=== PATIENT | male | born 1985 | race Caucasian/White ===

== ENCOUNTER 2024-02-24 08:38 | Inpatient (IN) | payer MEDICARE, MEDICAID ==
[~2024-02-24] VITALS: Ht 180.3 cm; Wt 72.2 kg
[2024-02-24] MEDS: OLANZapine 10 MG TABLET PO ONE (09:11)
[2024-02-24] MEDS: LORazepam 2 MG TABLET PO ONE (09:11)
[2024-02-24 09:16] LABS: BASOPHILS % (AUTO) 0.8 % (0.0-2.0); EOSINOPHILS % (AUTO) 1.5 % (1.0-6.0); HEMATOCRIT 43.8 % (41-53); HEMOGLOBIN 15.1 g/dL (13.5-17.5); LYMPHOCYTES % (AUTO) 14.4 % (22.0-44.0); MEAN CORPUSCULAR HEMOGLOBIN 30.7 pg (26.0-34.0); MEAN CORPUSCULAR HGB CONC 34.4 G/dL (31.0-37.0); MEAN CORPUSCULAR VOLUME 89 fL (80-100); MONOCYTES # (AUTO) 0.5 K/uL (0.1-1.0); MONOCYTES % (AUTO) 6.9 % (2.0-9.0); NEUTROPHILS # (AUTO) 5.2 K/uL (1.8-7.7); NEUTROPHILS % (AUTO) 76.4 % (40.0-70.0); PLATELET COUNT (AUTO) 213 K/uL (150-450); RED BLOOD CELL COUNT(AUTO) 4.92 MIL/uL (4.50-5.90); RED CELL DISTRIBUTION WIDTH 14.4 % (11.5-14.5); WHITE BLOOD COUNT (AUTO) 6.8 K/uL (4.5-11.0)
[2024-02-24 09:26] LABS: COVID AG,FIA SOURCE NASAL SWAB
[2024-02-24 09:30] LABS: ANION GAP 6 mmol/L (8-16); CARBON DIOXIDE 30 mmol/L (22-29); CHLORIDE 104 mmol/L (98-107); CREATININE 1.21 mg/dL (0.60-1.30); GLOMERULAR FILTR. RATE CALC > 60 mL/min (>60); GLUCOSE,RANDOM 203 mg/dL (70-110); POTASSIUM 4.4 mmol/L (3.5-5.1); SODIUM SERUM 140 mmol/L (136-145); UREA NITROGEN, BLOOD 27 mg/dL (7-18)
[2024-02-24 09:33] LABS: ALCOHOL, BLOOD (SERUM) < 3 mg/dL (0-10)
[2024-02-24 09:49] LABS: SARS-COV2 (COVID) ANTIGEN,FIA Negative (Negative)
[2024-02-24 10:36] LABS: GLUCOMETER DEV NAME(LOC) ER.7; GLUCOSE,POINT OF CARE 125 MG/DL (70-110)
[2024-02-24 14:03] VITALS: O2SAT 99
[2024-02-24] MEDS ORDERED: HALOPERIDOL 5 MG TABLET PO PRN (14:15)
[2024-02-24] MEDS ORDERED: FLUO-418 PO (15:51)
[2024-02-24] MEDS ORDERED: OLAN10TA74 PO (15:51)
[2024-02-24] MEDS ORDERED: LAMO-24 PO (15:51)
[2024-02-24] MEDS ORDERED: ATOM25CA8 PO (15:51)
[2024-02-24 16:12] VITALS: BP 131/75; PULSE 90; RESP 16; TEMP 97.6; O2SAT 100
[2024-02-24] MEDS ORDERED: ATOM100C2 PO (16:39)
[2024-02-24] MEDS ORDERED: LAMO250T2 PO (16:39)
[2024-02-24] MEDS ORDERED: INFLUENZA VIRUS VACCINE TVS (6MO+) 2024-25/PF 45 MCG/0.5 ML SYRINGE IM. ONE (16:45)
[2024-02-24 21:04] VITALS: BP 109/67; PULSE 83; RESP 18; TEMP 96.5
[2024-02-25] MEDS: ZOLPIDEM TARTRATE 10 MG TABLET PO PRN (01:34)
[2024-02-25] MEDS: LORazepam 2 MG TABLET PO PRN (06:48)
[2024-02-25 08:48] VITALS: BP 113/72; PULSE 99; RESP 16; TEMP 98.6; O2SAT 97
[2024-02-25 08:49] LABS: HEMOGLOBIN A1C 5.6 % (3.8-5.6)
[2024-02-25 08:58] LABS: CHOL/HDL RATIO 3.9 (4.2-7.3)
[2024-02-25] MEDS: OLANZapine 10 MG TABLET PO SCH (20:00)
[2024-02-25] MEDS: LamoTRIgine 100 MG TABLET PO SCH (20:00)
[2024-02-25 20:29] VITALS: BP 115/75; PULSE 89; RESP 18; TEMP 97.3; O2SAT 96
[2024-02-26 08:18] VITALS: BP 128/83; PULSE 92; RESP 17; TEMP 98; O2SAT 96
[2024-02-26] MEDS: ATOMOXETINE HCL 25 MG CAPSULE PO SCH (08:44)
[2024-02-26] MEDS: FLUoxetine HCL 20 MG CAPSULE PO SCH (08:44)
[2024-02-26] MEDS ORDERED: FLUoxetine HCL 20 MG CAPSULE PO SCH (13:00)
[2024-02-26] MEDS ORDERED: ATOMOXETINE HCL 25 MG CAPSULE PO SCH (13:00)
[2024-02-26] MEDS ORDERED: OLANZapine 10 MG TABLET PO SCH ×2 (13:00→21:00)
[2024-02-26] MEDS ORDERED: LamoTRIgine 100 MG TABLET PO SCH (13:00)
[2024-02-26 20:31] VITALS: BP 120/84; PULSE 80; RESP 17; TEMP 97.3; O2SAT 96
[2024-02-27 08:41] VITALS: BP 135/80; PULSE 99; RESP 18; TEMP 97.3; O2SAT 96
[2024-02-27] MEDS: ATORVASTATIN CALCIUM 40 MG TABLET PO SCH (08:53)
[2024-02-27] MEDS ORDERED: ATOM25CA8 PO (09:55)
[2024-02-27] MEDS ORDERED: FLUO-418 PO (09:55)
[2024-02-27] MEDS ORDERED: OLAN10TA74 PO (09:55)
[2024-02-27] MEDS ORDERED: LAMO-24 PO (09:55)
[2024-02-27] MEDS ORDERED: ATOR40TA71 PO (09:55)
== END 2024-02-27 12:24 | disposition home or self-care (01) | DRG 885 ==
LOC: EMS 08:41 → B2X 14:01
PROVIDERS: ADMIT Psychiatry & Neurology Child & Adolescent Psychiatry; ATTEND Psychiatry & Neurology Child & Adolescent Psychiatry
PROC: GZ52ZZZ Individual Psychotherapy, Cognitive (ICD-10-PCS; principal; 2024-02-25)
PROC: GZ56ZZZ Individual Psychotherapy, Supportive (ICD-10-PCS; 2024-02-25)
DX: F31.5 Bipolar disorder, current episode depressed, severe, with psychotic features (principal); R45.851 Suicidal ideations; I10 Essential (primary) hypertension; F41.9 Anxiety disorder, unspecified; G47.00 Insomnia, unspecified; Z20.822 Contact with and (suspected) exposure to COVID-19; Z79.899 Other long term (current) drug therapy; Z91.128 Patient's intentional underdosing of medication regimen for other reason
CPT/HCPCS: 80048; 80061; 82962; 83036; 85025; 86592; G0480